=== PATIENT | female | born 1950 | race Caucasian/White ===

== ENCOUNTER 2019-09-20 19:15 | Emergency (ER) | payer MEDICARE, OTHER ==
[~2019-09-20] VITALS: Ht 157.5 cm; Wt 88.5 kg
[2019-09-20] MEDS ORDERED: METOPROLOL SUCC25 MG PO ×2 (19:29→19:34)
[2019-09-20] MEDS ORDERED: SUPER B COMPLE1 EACH PO (19:30)
[2019-09-20] MEDS ORDERED: B12 ACTIVE1000 MCG PO (19:30)
[2019-09-20] MEDS ORDERED: HEALTHY HEART1 EACH PO (19:30)
[2019-09-20] MEDS ORDERED: SELENIUM200 MC1 PO (19:30)
[2019-09-20] MEDS ORDERED: D3 + K2 DOTS 11 EACH PO (19:31)
[2019-09-20] MEDS ORDERED: ECOTRIN325 MG PO (19:32)
[2019-09-20] MEDS ORDERED: FISH OIL 1,0001 EAC2 NG (19:32)
[2019-09-20] MEDS ORDERED: CLARITIN10 M2 PO (19:32)
[2019-09-20] MEDS ORDERED: CHROMIUM400 MCG PO (19:32)
[2019-09-20] MEDS ORDERED: TIROSINT125 MCG PO (19:33)
--- NOTE | 2019-09-21 18:31 | EKG ---
[facility] [address] [facility] [place], [place] [address] Signed Normal sinus rhythm Normal ECG No previous ECGs available Confirmed by BRIANA HAY DO ([id number]) on 09/21/2019 6:30:51 PM Electronically Signed By: BRIANA HAY DO 09/21/19 183 PATIENT NAME: PEYMANTEETEE MONET Electrocardiogram DATE OF : 50 PHYSICIAN: BRIANA HAY DO REPORT #: [id number] REPORT IS CONFIDENTIAL AND NOT TO BE RELEASED WITHOUT AUTHORIZATION
== END 2019-09-20 21:57 | disposition home or self-care (01) ==
LOC: ED 19:15
DX: R07.89 Other chest pain (principal); E78.00 Pure hypercholesterolemia, unspecified; I10 Essential (primary) hypertension; Z87.891 Personal history of nicotine dependence; Z79.899 Other long term (current) drug therapy
CPT/HCPCS: 71045; 80053; 83735; 84484; 85025; 85379; 85610; 85730; 93005; 93010; 99285-25